=== PATIENT | female | born 1955 | race Hispanic/Latino ===

== ENCOUNTER 2020-05-15 12:55 | Emergency (ER) | payer MEDICARE ==
[~2020-05-15] VITALS: Ht 160 cm; Wt 78.0 kg
--- NOTE | 2020-05-15 13:28 | Emergency Department Note ---
History of Present Illnes History of Present Illness Chief Complaint: Abdominal Complaints History of Present Illness This is a 65 year old female, with a history of NIDDM, who is brought in by her daughter with a 2 day history of intermittent vomiting and diarrhea. Patient reportedly vomited twice yesterday and had 5 episodes of loose stool. She has not vomited yet today, and she's had several episodes of diarrhea, without blood or mucus. Patient ate some cookies and drink some coffee this morning, and she was able to keep that down. She is currently nauseated. She returned from [place] yesterday, after visiting family. She denies any sick contacts in [place], or locally. She denies any fever, chills, cough, upper respiratory symptoms, dysuria, or frequency. Historian: Patient Arrival Mode: Car History limited by: language barrier Hide Or Skin Buffer Required: Yes (daughter translated;) Onset (how long ago): day(s) (2) Location: body aches and epigastric pain Quality: aching and burning Radiation: Reports non-radiation Severity: moderate Onset quality: sudden Duration (how long): day(s) (2) Timing of current episode: intermittent Progression: unchanged Chronicity: new Context: Reports recent travel (patient just returned from visiting her , who lives in [place]. She denies any sick contacts there or locally.); Denies recent illness, Denies recent surgery Relieving factors: none Exacerbating factors: none Associated symptoms: Reports loss of appetite, Reports nausea/vomiting; Denies chest pain, Denies shortness of breath Treatments prior to arrival: none (there) Risk factors: diabetes Past Medical/Family History Physician Review I have reviewed the patient's past medical and family history. Any updates have been documented here. Past Medical History Recent Fever: No Clinical Suspicion of Infectio: No New/Unexplained Change in Ment: No Past Medical History: Diabetes (NIDDM) Past Surgical History: Social History Smoking Cessation: Never Smoker Counseling Performed: No Alcohol Use: None Any Illegal Drug Use: No TB Exposure/Symptoms: No Physically hurt or threatened: No Family History Family history of heart diseas: No Other Any Pre-Existing Lines (PICC,: No Is patient up to date on immun: No Review of Systems Review of Systems Constitutional: Reports malaise; Denies chills, Denies fever EENTM: Reports no symptoms Cardiovascular: Denies chest pain, Denies edema, Denies palpitations Respiratory: Denies cough, Denies pain on inspiration, Denies pain with cough, Denies dyspnea on exertion Gastrointestinal: Reports abdominal pain (burning, epigastric pain), Reports diarrhea, Reports nausea, Reports vomiting (none today) Genitourinary: Reports no symptoms Musculoskeletal: Reports muscle pain Integumentary: Reports no symptoms Neurological: Reports no symptoms; Denies numbness, Denies weakness Psychological: Reports no symptoms Review of other systems: All other systems negative Physical Exam Related Data Allergies: Coded Allergies: No Known Allergies (Unverified , 05/15/20) Triage Vital Signs Vital Signs Date Time Temp Pulse Resp B/P (MAP) Pulse Ox O2 Delivery O2 Flow Rate FiO2 05/15/20 13:17 98.6 84 18 120/72 98 Room Air Vital signs reviewed: Yes Physical Exam CONSTITUTIONAL Constitutional: Present well-developed, Present well-nourished; Absent distressed, Absent ill appearing HENT HENT: Present normocephalic, Present atraumatic, Present oropharynx clear/moist, Present nose normal; Absent nasal discharge, Absent nasal congestion, Absent oropharyngeal exudate, Absent pharynx abnormal, Absent erythema HENT L/R: Present left TM normal, Present right TM normal, Present left ext ear normal, Present right ext ear normal EYES Eyes: Reports PERRL, Reports conjunctivae normal NECK Neck: Present ROM normal, Present supple; Absent cervical adenopathy PULMONARY Pulmonary: Present breath sounds normal; Absent respiratory distress, Absent chest tenderness CARDIOVASCULAR Cardiovascular: Present regular rhythm, Present heart sounds normal; Absent murmur GASTROINTESTINAL Abdominal: Present soft, Present nontender, Present bowel sounds normal GENITOURINARY SKIN Skin: Present warm, Present dry MUSCULOSKELETAL Musculoskeletal: Present ROM normal NEUROLOGICAL Neurological: Present alert, Present oriented x 3, Present no gross motor or sensory deficits PSYCHOLOGICAL Psychological: Present mood/affect normal, Present judgement normal Results Laboratory Laboratory CBC - nl; CMP - nl except for AST = 47 Cardiacs - negative; UA -negative; Lab results reviewed: Yes Imaging Imaging results reviewed: Yes Impressions Procedure: [id number] HOPD/CT ABD/PEL WITH CONTRAST-HOPD Exam Date: 05/15/20 Exam Time: 1556 REPORT STATUS: Signed EXAM: CT Abdomen and Pelvis WITH intravenous contrast INDICATION: Left lower quadrant abdominal pain COMPARISON: None. TECHNIQUE: Abdomen and pelvis were scanned utilizing a multidetector helical scanner from the lung base to the pubic symphysis after administration of IV contrast. Coronal and sagittal reformations were obtained. Routine protocol was performed. Scan was performed during portal venous phase. IV CONTRAST: 100mL of Isovue 370 ORAL CONTRAST: None RADIATION DOSE: Total DLP: 715 mGy*cm Dose modulation, iterative reconstruction, and/or weight based adjustment of the mA/kV was utilized to reduce the radiation dose to as low as reasonably achievable. FINDINGS: LOWER THORAX: Normal. HEPATOBILIARY: Diffuse hepatic steatosis. 2.3 cm left hepatic cyst. No other focal liver lesions. No biliary ductal dilation. Unremarkable gallbladder. SPLEEN: No splenomegaly. PANCREAS: No focal masses or ductal dilatation. ADRENALS: No adrenal nodules. KIDNEYS/URETERS: No hydronephrosis, stones, or solid mass lesions. PELVIC ORGANS/BLADDER: Retrograde uterus with posterior calcified uterine fibroids. PERITONEUM / RETROPERITONEUM: No free air or fluid. LYMPH NODES: No lymphadenopathy. VESSELS: Mild scattered atherosclerotic calcifications of the nonaneurysmal abdominal aorta and major branches. GI TRACT: No abnormal bowel thickening. No bowel obstruction. BONES AND SOFT TISSUES: No acute osseous injury. L2 vertebral body lucent lesion, likely hemangioma. Grade 1 retrolisthesis at L2-3. Mild multilevel degenerative changes of the visualized spine. IMPRESSION: No acute findings in the abdomen or pelvis. Diffuse hepatic steatosis. Uterine fibroids. Signed by: Araseli Peralta MD on 05/15/2020 4:14 PM Dictated By: ARASELI PERALTA MD 13 Transcribed By: RE on 05/15/201613 COPY TO: HERON CALL MD~ Assessment & Plan Medical Decision Making MDM - Taking ondansetron ODT as needed for nausea and vomiting. - Take the Pepcid daily x 7-10 days to help with abdominal pain. - Drink small amounts of fluids frequently, especially water, Pedialyte, or G2 Gatorade. - Recommend a bland diet, avoiding fried, fast, fatty, and spicy foods, until symptoms completely resolve. - For the diarrhea, you may take Imodium AD, as needed. You may take up to 4 tablets in 24 hours. - Return to the emergency room, if your symptoms worsen, if you are unable to keep any fluids down, become weak, dizzy, or feel like you may pass out. - You may consider Covid 19 testing at one of the [facility] testing centers, if desired. Since her symptoms may be related to Covid 19, it is recommended that you self quarantine for 14 days, staying away from all others. Assessment & Plan Final Impression: (1) Acute viral syndrome (2) Vomiting and diarrhea (3) Gastritis (4) Abdominal pain Depart Disposition: HOME, SELF-CARE Last Vital Signs Date Time Temp Pulse Resp B/P (MAP) Pulse Ox O2 Delivery O2 Flow Rate FiO2 05/15/20 13:17 98.6 84 18 120/72 98 Room Air Medications in the ED Patient was prescribed ondansetron ODT 4 mg - 1 by mouth every 6 hours when necessary nausea and vomiting, #20 with no refills. She was also prescribed Pepcid 20 mg 1 by mouth twice a day 7 days then 1 by mouth daily 7 days and as needed. The printer was down and therefore they were handwritten. HERON CALL MD May 15, 2020 13:28
[2020-05-15] MEDS ORDERED: FAMOTIDINE 20 MG/2 ML VIAL IV STA (14:14)
[2020-05-15] MEDS ORDERED: SODIUM CHLORIDE 0.9% 1000ML 1,000 ML IV SCH (14:15)
[2020-05-15] MEDS ORDERED: ONDANSETRON HCL INJ 2MG/ML 2ML 2 MG/ML VIAL IV NR (14:30)
[2020-05-15] MEDS ORDERED: FAMOTIDINE 20 MG/2 ML VIAL IV ONE (14:59)
[2020-05-15] MEDS ORDERED: SODIUM CHLORIDE 0.9% 1000ML 1,000 ML ONE (14:59)
[2020-05-15] MEDS ORDERED: ONDANSETRON HCL INJ 2MG/ML 2ML 2 MG/ML VIAL ONE (14:59)
[2020-05-15] MEDS ORDERED: IOPAMIDOL 370 MG/ML 200 ML INFUS..BTL INJ ONE (16:13)
[2020-05-15] MEDS ORDERED: NITROGLYCERIN/D5W 200 MCG/ML 250 ML ONE (16:13)
--- NOTE | 2020-05-15 16:17 | Diagnostic Imaging Report ---
EXAM: CT Abdomen and Pelvis WITH intravenous contrast INDICATION: Left lower quadrant abdominal pain COMPARISON: None. TECHNIQUE: Abdomen and pelvis were scanned utilizing a multidetector helical scanner from the lung base to the pubic symphysis after administration of IV contrast. Coronal and sagittal reformations were obtained. Routine protocol was performed. Scan was performed during portal venous phase. IV CONTRAST: 100mL of Isovue 370 ORAL CONTRAST: None RADIATION DOSE: Total DLP: 715 mGy*cm Dose modulation, iterative reconstruction, and/or weight based adjustment of the mA/kV was utilized to reduce the radiation dose to as low as reasonably achievable. FINDINGS: LOWER THORAX: Normal. HEPATOBILIARY: Diffuse hepatic steatosis. 2.3 cm left hepatic cyst. No other focal liver lesions. No biliary ductal dilation. Unremarkable gallbladder. SPLEEN: No splenomegaly. PANCREAS: No focal masses or ductal dilatation. ADRENALS: No adrenal nodules. KIDNEYS/URETERS: No hydronephrosis, stones, or solid mass lesions. PELVIC ORGANS/BLADDER: Retrograde uterus with posterior calcified uterine fibroids. PERITONEUM / RETROPERITONEUM: No free air or fluid. LYMPH NODES: No lymphadenopathy. VESSELS: Mild scattered atherosclerotic calcifications of the nonaneurysmal abdominal aorta and major branches. GI TRACT: No abnormal bowel thickening. No bowel obstruction. BONES AND SOFT TISSUES: No acute osseous injury. L2 vertebral body lucent lesion, likely hemangioma. Grade 1 retrolisthesis at L2-3. Mild multilevel degenerative changes of the visualized spine. IMPRESSION: No acute findings in the abdomen or pelvis. Diffuse hepatic steatosis. Uterine fibroids. Signed by: Arina Peralta MD on 05/15/2020 4:14 PM
[2020-05-15 19:04] VITALS: BP 141/71
== END 2020-05-15 19:07 | disposition home or self-care (01) ==
LOC: FSED 12:55
DX: B34.9 Viral infection, unspecified (principal); K29.70 Gastritis, unspecified, without bleeding; R10.13 Epigastric pain; R11.2 Nausea with vomiting, unspecified; R19.7 Diarrhea, unspecified; E11.9 Type 2 diabetes mellitus without complications
CPT/HCPCS: 74177; 99284; J2405; J7030; Q9967

== ENCOUNTER → 2022-05-28 | Outpatient (CLI) | payer MEDICARE | LOC: RAD 13:32 | PROVIDERS: ATTEND Internal Medicine | DX: J45.909 Unspecified asthma, uncomplicated (principal) | CPT/HCPCS: 71046 ==

== ENCOUNTER → 2023-02-24 | Outpatient (CLI) | payer MEDICARE ==
[~2023-02-24] MED LIST: DIATRIZOATE MEGL/DIATRIZOA SOD 30 ML BTL PO ONE
== END ==
LOC: CT 11:19
PROVIDERS: ATTEND Nurse Practitioner
DX: R10.30 Lower abdominal pain, unspecified (principal); R14.0 Abdominal distension (gaseous); K59.09 Other constipation; L29.0 Pruritus ani
CPT/HCPCS: 74176; Q9963

== ENCOUNTER → 2024-08-17 | Outpatient (REF) | payer MEDICARE | LOC: CT 13:03 | PROVIDERS: ATTEND Internal Medicine | DX: M79.641 Pain in right hand (principal); R10.9 Unspecified abdominal pain | CPT/HCPCS: 74176 ==

== ENCOUNTER → 2025-02-01 | Day surgery (SDC) | payer MEDICARE ==
[2025-01-30 11:05] LABS: BASOPHILS % 0.4 % (0.0-1.0); EOSINOPHILS # (AUTO) 0.3 (0.0-0.4); EOSINOPHILS % 4.4 % (0.0-6.0); HEMATOCRIT 34.8 % (34.2-44.1); HEMOGLOBIN 11.2 g/dL (12.0-16.0); LYMPHOCYTES # (AUTO) 2.7 (1.0-3.2); LYMPHOCYTES % 34.4 % (18.0-39.1); MEAN CORPUSCULAR HEMOGLOBIN 28.4 pg (28-32); MEAN CORPUSCULAR HGB CONC 32.2 g/dL (31-35); MEAN CORPUSCULAR VOLUME 88.1 fL (81-99); MONOCYTES # (AUTO) 0.7 (0.2-0.8); MONOCYTES % 8.7 % (4.4-11.3); NEUTROPHILS % 51.7 % (38.7-80.0); PLATELET COUNT 228 x10e3/uL (140-360); RED BLOOD COUNT 3.95 x10e6/uL (3.6-5.1); RED CELL DISTRIBUTION WIDTH 13.7 % (11.7-14.4)
[~2025-02-01] MED LIST changes: -DIATRIZOATE MEGL/DIATRIZOA SOD 30 ML BTL PO ONE; +FENTANYL CITRATE/PF 100MCG/2 ML INJ ONE; +GLUCAGON FOR INJ 1 MG VIAL ONE; +HYOSCYAMINE SULFATE 0.5 MG/ML INJ ONE; +LATANOPROST2.5 ML OU; +LIDOCAINE HCL 2% LOCAL INJ 5 ML SDV VIAL INJ ONE; +LIPITOR10 MG PO; +METFORMIN HCL500 MG PO; +METOCLOPRAMIDE HCL 10 MG/2ML VIAL ONE; +OMEPRAZOLE40 MG PO; +PROPOFOL IV EMULSION 10 MG/ML 20 ML VIAL ONE; +PROPOFOL IV EMULSION 50 ML IV ONE; +VENTOLIN HFA18 GM INH
[2025-02-01] MEDS: LACTATED RINGER'S 1,000 ML ONE (07:35)
[2025-02-01 09:32] VITALS: TEMP 97.4
[2025-02-01 10:00] VITALS: BP 144/79; PULSE 59; RESP 16; O2SAT 99
== END | disposition home or self-care (01) ==
LOC: OR 06:56
PROVIDERS: ATTEND Internal Medicine Gastroenterology
DX: K29.50 Unspecified chronic gastritis without bleeding (principal); D12.0 Benign neoplasm of cecum; D12.2 Benign neoplasm of ascending colon; K59.00 Constipation, unspecified; K62.89 Other specified diseases of anus and rectum; K31.89 Other diseases of stomach and duodenum; K52.9 Noninfective gastroenteritis and colitis, unspecified; K20.90 Esophagitis, unspecified without bleeding; K63.3 Ulcer of intestine; K21.9 Gastro-esophageal reflux disease without esophagitis; K64.8 Other hemorrhoids; D64.9 Anemia, unspecified; E11.9 Type 2 diabetes mellitus without complications; J45.909 Unspecified asthma, uncomplicated; E78.5 Hyperlipidemia, unspecified; F41.9 Anxiety disorder, unspecified; F32.A Depression, unspecified; Z91.041 Radiographic dye allergy status; Z01.810 Encounter for preprocedural cardiovascular examination; Z01.812 Encounter for preprocedural laboratory examination; Z79.84 Long term (current) use of oral hypoglycemic drugs; Z79.899 Other long term (current) drug therapy
CPT/HCPCS: 36415 ×2; 43239; 45380; 45385; 82948; 85025; 86140; 93005; J1610; J1980; J2003; J2470; J2704 ×2; J2765; J3010; J7121